=== PATIENT | female | born 1975 | race African-American/Black ===

== ENCOUNTER → 2017-12-04 | Outpatient (CLI) | payer OTHER ==
[~2017-12-04] VITALS: Ht 170.2 cm; Wt 116.7 kg
[~2017-12-04] MED LIST: AMITRIPTYLINE H25 M2 PO; ASPIRIN81 M2 PO; BALANCE B-501 EACH PO; LOPRESSOR50 PO; MYFORTIC180 MG PO; NEURONTIN 300300 M1 PO; NORVASC5 MG PO; POTASSIUM PO; PROBIOTIC1 EAC1 PO; PROGRAF 1 MG1 MG PO; SERTRALINE HCL100 MG PO; TRAZODONE 150150 M1 PO; TRIAMCINOLONE A80 G2 TOP; TRILEPTAL150 MG PO; VITAMIN D1000 UNI1 PO; VOLTAREN GEL 1100 G1 TOP; ZANAFLEX4 MG PO; ZANTAC 150MG T150 MG PO; ZOLPIDEM TARTRA10 MG PO
--- NOTE | ~2017-12-04 | HPC ---
[facility] [address] [place] [address] PAIN MANAGEMENT CONSULTATION Name: BENERNESTINAGARRY MOHAMUD Room #: REG CORIJocelyne Hancock.#: [id number] Admission: 12/04/17 Attend Phys: Dickson Martins DO Discharge: Date of : 75 Report #: [id number] THIS REPORT FOR: //name// CC: Marly Martins DATE OF SERVICE: 12/04/2017 The patient is a very pleasant 42-year-old female seen in consultation at the request of Dr. Salinas for assistance with management of left upper extremity pain. The patient presents to pain clinic with significant hyperpathia, allodynia, swelling and decreased range of motion left forearm, wrist and hand. She describes rhythmic, periodic, burning, shooting, throbbing, sharp pain. She rates anywhere from 8-10 on a visual analog scale. She notes any light touch significantly exacerbates pain. The patient notes she had had a left trigger finger (ring finger), treated with injections about 3 years ago. Ultimately progressed about 6 months ago to have surgical release of the entrapped tendon. States she did well for a few months and then in September without specific antecedent trauma developed significant pain, radial aspect of the wrist has developed a little bit of somewhat ulnar drift to the wrist and inability to deviate hand towards the radial side with significant increased pain. She followed up with her hand surgeon, Dr. Ross. MRI was ordered. He referred her to Dr. Morton at [facility] for a second opinion. Dr. Coronel did feel that her symptoms far outweighed the MRI findings. Suggested she may benefit from surgery, but wanted to wait until after the current swelling was resolved. The patient notes symptoms have become significantly worse over the past several months. REVIEW OF SYSTEMS: Complete review of systems was attached to the chart, was gone over with the patient. She is single, seen in company of her fiance who is supportive. She smokes which she has for 20+ years. She smokes 2-3 cigars a day presently. Does not drink alcohol to excess. History of glucose intolerance, not on any medications for this. History of hypertension, treated with metoprolol and amlodipine. She had a kidney and pancreatic transplant in 2009. She does take Prograf. She fortunately has had resolution of her hyperglycemia. She uses Myfortic, trazodone for some chronic insomnia, alternating with Ambien. She had been prescribed sertraline for chronic anxiety and depression, though she discontinued this in July. It sounds like she was having intermittent prescriptions and difficulty making appointments with her psychologist. Remaining review of systems is noncontributory. [address] [address] PAIN MANAGEMENT CONSULTATION Name: ERNESTINA CONTREARS Room #: REG LEXIS Bustos#: [id number] Admission: 12/04/17 Attend Phys: Dickson Martins DO Discharge: Date of : 75 Report #: [id number] SURGICAL HISTORY: As noted, status post pancreas transplant in 2009 and the aforementioned left hand trigger finger surgery about 6 months ago. She works in customer service. She is not working presently. She has been off work for 2 months due to ongoing pain. Pain impact score is quite high, averaging 10/10 for general activity, mood, sleep and enjoyment of life. PHYSICAL EXAMINATION: Reveals a 5-foot 7-inch, 116-kilogram female, BMI is 40 kilograms per meter squared. Blood pressure is 127/72, pulse 87, respirations 16. Cranial nerves 2-12 are grossly intact. She does have a little lateral gaze nystagmus. Thyroid is modestly large. She does have some bulging in the left supraclavicular area. Biceps, triceps and deltoid strength is symmetric. She has significant hyperpathia, allodynia about the left forearm starting just distal to the elbow. She has swelling in that left hand. Hand grasp is dramatically limited. She is unable to oppose her thumb and ring or fifth finger. She has difficulty with pronation. She can supinate adequately. Lungs are clear to auscultation. Heart is regular rate and rhythm. Abdomen is modestly endomorphic. Gait is tandem. DIAGNOSTIC STUDIES: MRI of the hand from 09/16/2017 does note findings consistent with a tear involving the ulnar styloid and foveal portions of the triangular fibrocartilage. There is also finding suggestive of small focal defect or tear at the radial attachment of the triangular fibrocartilage with some fluid noted here. ASSESSMENT: Reflex sympathetic dystrophy, left upper extremity complex regional pain syndrome. RECOMMENDATIONS: We will start the patient on gabapentin, gradually titrating 900 mg a day. We will plan on moving forward with left stellate ganglion block, a series of 3 in short cycle (q. 2-3 days). We also briefly discussed future therapeutic options including spinal cord stimulator if we cannot mitigate current symptoms. Thank you for allowing me to participate in the patient's care. I will keep you abreast of her progress. <ELECTRONICALLY SIGNED> By: Dickson Martins DO 12/05/17 0704 [id number] 38 Dickson Martins DO /nt
[2017-12-04 09:26] VITALS: BP 127/72
== END ==
LOC: PAIN 06:47
DX: M79.632 Pain in left forearm (principal); M79.642 Pain in left hand; M25.532 Pain in left wrist; R20.8 Other disturbances of skin sensation

== ENCOUNTER → 2018-03-16 | Outpatient (CLI) | payer OTHER ==
[~2018-03-16] VITALS: Ht 170.2 cm; Wt 107.5 kg
--- NOTE | ~2018-03-16 | HPC ---
[facility] [address] [place] [address] PAIN MANAGEMENT CONSULTATION Name: ERNESTINA CONTRERAS Room #: REG LEXIS Bustos#: [id number] Admission: 03/16/18 Attend Phys: Dickson Martins DO Discharge: Date of : 75 Report #: [id number] THIS REPORT FOR: //name// CC: Marly Martins DATE OF SERVICE: 03/16/2018 PAIN CLINIC PROCEDURE HISTORY OF PRESENT ILLNESS: The patient is a very pleasant 42-year-old female being treated for RSD left upper extremity, CRPS, requiring complex medication management. Last seen in the pain clinic on 02/19/2018. We plan on moving forward with left stellate ganglion block at that time; however, the patient had been quite ill. She had a leukocytosis, nausea, vomiting. She had been at [facility] earlier in the month and had some swelling in the right hand secondary to infiltrated IV. We elected to postpone interventional therapy as she had some sedation and cognitive impairment (electrolyte imbalance?) at her last visit. We trialled with Trileptal 150 mg at bedtime, titrating 2 at night. The patient returns to pain clinic today noting that Trileptal as with the gabapentin afforded untoward sedation. She discontinued that medication. Fortunately, the right hand swelling has resolved. She still has ongoing neuropathic pain, left upper extremity with hyperpathia, allodynia, status post prior intervention (CRPS type 1). The patient wished to proceed with left stellate ganglion block as we had discussed at her last visit. ASSESSMENT: Symptomatic complex regional pain syndrome type 1 left upper extremity. PROCEDURE: Left stellate ganglion block. DESCRIPTION OF PROCEDURE: After written informed consent was obtained, the patient was taken to the fluoroscopy suite and placed in supine position. Skin overlying the neck was cleansed with ChloraPrep. Skin wheal with Xylocaine was raised. A 22-gauge styletted stellate ganglion needle was placed to contact the lateral anterior aspect of the C6 vertebral body. AP and lateral projections showed good needle placement. Negative aspiration was accomplished, 1 mL of Omnipaque was injected, which showed spread within the sympathetic gutter. This was followed with 4 mL of 0.5% preservative-free bupivacaine plus 4 mL of 1.5% preservative-free Xylocaine with 1:200,000 epinephrine +4 mg of Decadron. Needle was removed. The area was cleansed, Band-Aids applied. The patient [address] [address] PAIN MANAGEMENT CONSULTATION Name: ERNESTINA CONTRERAS Room #: REG CLI Akash#: [id number] Admission: 03/16/18 Attend Phys: Dickson Martins DO Discharge: Date of : 75 Report #: [id number] monitored for an appropriate period of time, discharged in good and stable condition. <ELECTRONICALLY SIGNED> By: Dickson Martins DO 03/19/18 0805 1514 49 Dickson Martins DO /nick
[2018-03-16 13:50] VITALS: BP 151/87
== END | disposition home or self-care (01) ==
LOC: PAIN 03-06 14:31
DX: G90.512 Complex regional pain syndrome I of left upper limb (principal); Z79.899 Other long term (current) drug therapy; R20.8 Other disturbances of skin sensation; Z91.040 Latex allergy status; Z87.891 Personal history of nicotine dependence; Z79.82 Long term (current) use of aspirin

== ENCOUNTER → 2018-03-23 | Outpatient (CLI) | payer OTHER ==
[~2018-03-23] VITALS: Ht 170.2 cm; Wt 107.5 kg
--- NOTE | ~2018-03-23 | HPC ---
[facility] [place] [address] [address] PAIN MANAGEMENT CONSULTATION Name: ERNESTINA CONTRERAS Room #: REG LEXIS Bustos#: [id number] Admission: 03/23/18 Attend Phys: Dickson Martins DO Discharge: Date of : 75 Report #: [id number] THIS REPORT FOR: //name// CC: Marly Martins The patient is a 42-year-old female being treated for RSD left upper extremity. She was initially seen in consultation on 12/04/2017. We started gabapentin with really little efficacy. We talked about a spinal cord stimulator trial versus a series of stellate ganglion blocks. She ultimately progressed to have an initial stellate ganglion block on 03/16/2018. She returns to pain clinic today. I am pleased to note dramatic improvement of baseline pain. While she still scores the pain is 5 on a VAS, the area of hyperpathia and allodynia have significantly diminished. She still has an area about the proximal radial aspect of the forearm that is hyperpathic and allodynic. She still has some edema in the left upper extremity, but she feels overall significant improvement. Vital signs show modest hypertension 159/85, pulse 84, respirations are 18. She is alert and oriented to person, place, and time, judged to be a reasonable historian. Again, notes 50% improvement following the injection. Cervical range of motion is good. No sequelae from the procedure. ASSESSMENT: Complex regional pain syndrome, right upper extremity (type 1). The patient has been intolerant of most oral agents, though she is able to take amitriptyline at bedtime and oxcarbazepine at bedtime. She has chosen to eschew opiate analgesics and gabapentin caused untoward sedation. RECOMMENDATIONS: We will repeat left stellate ganglion block this day will make a follow up appointment to see the patient in 1 week; however, given the good efficacy from a single injection, I am hopeful we will not have to progress to a third stellate ganglion injection. <ELECTRONICALLY SIGNED> By: Dickson Martins DO 03/25/18 0725 1352 193 Dickson Martins DO /nt
[2018-03-23 13:12] VITALS: BP 159/85
== END ==
LOC: PAIN 06:43
DX: G90.50 Complex regional pain syndrome I, unspecified (principal)

== ENCOUNTER → 2018-04-10 | Outpatient (CLI) | payer OTHER ==
[~2018-04-10] VITALS: Ht 170.2 cm; Wt 109.8 kg
--- NOTE | ~2018-04-10 | HPC ---
[facility] [place] [address] [address] [address] PAIN MANAGEMENT CONSULTATION Name: ERNESTINA CONTRERAS Room #: REG LEXIS Bustos#: [id number] Admission: 04/10/18 Attend Phys: Dickson Martins DO Discharge: Date of : 75 Report #: [id number] THIS REPORT FOR: //name// CC: Marly Martins The patient is a very pleasant 42-year-old female being treated for left upper extremity complex regional pain syndrome type 1 (RSD) neuropathic pain. She has had one stellate ganglion block with significant improvement of baseline pain, but still has ongoing pain. She rates it as an 8 on a VAS. Pain is burning, shooting, throbbing and sharp. It is in the radial aspect distal forearm. She has limited range of motion to flexion, extension and radial and ulnar deviation, approximately 60% of the contralateral right hand range of motion. Does have hyperpathia, allodynia about the point aspect of left distal wrist where she had had a shunt placement attempted. ASSESSMENT: Neuropathic pain, left upper extremity. RECOMMENDATIONS: The patient presents to the pain clinic today for stellate ganglion block #2. Block #1 on 03/16/2018 had afforded good incremental relief. She has been loathe to take opiate analgesics. Calcium channel membrane stabilizing agents caused cognitive impairment. PROCEDURE: Left stellate ganglion block under fluoroscopy. PROCEDURE NOTE: After written informed consent was obtained, the patient placed in the supine position in the fluoroscopy suite. The skin overlying the neck was cleansed with ChloraPrep. Skin wheal with Xylocaine was raised. A 22-gauge stellate ganglion needle was placed to contact the anterior aspect of the left side of the C6 vertebral body at [place] tubercle. Negative aspiration was accomplished. 1 mL of Omnipaque was injected, which showed spread within the sympathetic gutter. This was followed with 4 mg of Decadron, 4 mL of 0.5% preservative-free bupivacaine and 1.5% preservative-free Xylocaine with 1:200,000 epinephrine. Needle was removed, the area was cleansed and Band-Aid was applied. The patient monitored for an appropriate period of time. Discharged in good and stable condition. Follow up with Dr. Dashawn Melton in 3-4 weeks. <ELECTRONICALLY SIGNED> By: Dickson Martins DO 04/12/18 1135 1145 [id number] Dickson Martins DO /nt
[2018-04-10 10:46] VITALS: BP 163/94
== END | disposition home or self-care (01) ==
LOC: PAIN 03-26 11:09
DX: G90.512 Complex regional pain syndrome I of left upper limb (principal)

== ENCOUNTER → 2018-04-27 | Outpatient (CLI) | payer OTHER ==
[~2018-04-27] VITALS: Ht 170.2 cm; Wt 110.7 kg
--- NOTE | ~2018-04-27 | HPC ---
[facility] [place] [address] PAIN MANAGEMENT CONSULTATION Name: ERNESTINA CONTRERAS ONEIDA Room #: REG CORIJocelyne Hancock.#: [id number] Admission: 04/27/18 Attend Phys: Dashawn Melton MD Discharge: Date of : 75 Report #: [id number] THIS REPORT FOR: //name// CC: Marly Melton DATE OF SERVICE: 04/27/2018 Followup visit for left arm pain. The patient returns to pain clinic today after 2 stellate ganglion blocks. Her pain is no better. She had some temporary relief after the first stellate ganglion block provided by Dr. Martins. She scores her pain today is an 8 exactly what she presented with before beginning initial injection therapy. She holds her hand in a [id number] position. She does not use it. She lays it on a pillow. She has allodynia on the left wrist, but she does not have excessive allodynia through the rest the arm. She has limited range of motion, but mostly, I believe this is due to disuse atrophy. She is very kinesophobic and is afraid of moving her arm because of the pain. MEDICATIONS: Reviewed and reconciled. She is not on stronger pain medication by her choice. She has limited use of nonsteroidal anti-inflammatory drugs because of her transplanted kidney. She is taking amitriptyline 25 mg at bedtime, trazodone 150 mg at bedtime, tizanidine 4 mg t.i.d., zolpidem for sleep, aspirin as well as metoprolol, ranitidine, amlodipine, Prograf, Myfortic and calcium with vitamin D. PHYSICAL EXAMINATION: GENERAL: She is a gentle 42-year-old. VITAL SIGNS: Blood pressure 138/70, heart rate 85, respirations 16. BMI 38.2. EXTREMITIES: Examination of the left wrist reveals limited range of motion of the fingers and the wrist is limited in pronation. There is localized tenderness along the radial aspect of the wrist just below the carpal radial junction. X-rays reveal a tear of the ulnar styloid and foveal triangular fibrocartilage. RECOMMENDATIONS: I think she really needs occupational therapy aggressively at this point. If she does not continue to use the arm, I believe that she will continue to get worse and I expressed this in clear terms to her. Because of her transplant kidney and her wish to avoid sedating medications, we are somewhat limited in medications that we can provide. I have suggested that we try some topical medications and ordered a ketamine cream, which has been [address] [address] PAIN MANAGEMENT CONSULTATION Name: ERNESTINA CONTRERAS ONEIDA Room #: REG [facility] Venu.Andrews.#: [id number] Admission: 04/27/18 Attend Phys: Dashawn Melton MD Discharge: Date of : 75 Report #: [id number] helpful in some of our patients. I was disappointed to hear that it is not covered by insurance and she cannot afford it. I have suggested Aspercreme along with her physical therapy. IMPRESSION: 1. Chronic pain of the left wrist with disuse atrophy and weakness, some allodynia suggesting sympathetic component. 2. Failure of stellate ganglion erwin therapy. PLAN: Occupational therapy as described provided at [facility] closer to her home. I have asked for hand evaluation and treatment modalities p.r.n. 2 visits per week for 4 weeks and we will reassess. By: [id number] Dashawn Melton MD /nt
[2018-04-27 12:49] VITALS: BP 138/70
== END ==
LOC: PAIN 06:25
DX: M25.532 Pain in left wrist (principal); G89.29 Other chronic pain; R53.1 Weakness; M79.602 Pain in left arm

== ENCOUNTER → 2018-06-25 | Outpatient (CLI) | payer OTHER ==
[~2018-06-25] VITALS: Ht 170.2 cm; Wt 114.0 kg
--- NOTE | ~2018-06-25 | HPC ---
[facility] [address] [place] [address] PAIN MANAGEMENT CONSULTATION Name: ERNESTINA CONTRERAS ONEIDA Room #: REG LEXIS Santi.#: [id number] Admission: 06/25/18 Attend Phys: Dashawn Melton MD Discharge: Date of : 75 Report #: [id number] THIS REPORT FOR: //name// CC: Dashawn Neville DATE OF SERVICE: 06/25/2018 Followup visit for left wrist pain. The patient returns to pain clinic today in followup. While she complains of pain through her neck and her entire arm, the vast majority of her pain is in her wrist along the radial aspect. She has a touch me not tenderness in that area and pain with all movements. She has had no local treatments there. I referred her to occupational therapy, but she would not go. She continues to hold her arm in a touch me not position. I believe this is contributing to the pain that is in her shoulder and neck. PHYSICAL EXAMINATION: She is a soft spoken, 42-year-old. Her blood pressure is 150/86, heart rate 71, respirations 16. She has allodynia and light touch discomfort along the radial aspect of the wrist. She has pain with all movement, flexion, extension and lateral movements of the wrist. There is no redness, but there may be some swelling. IMPRESSION: I believe this may be de Quervain's tenosynovitis. She has now been complaining of this for many months. RECOMMENDATIONS: I have recommended a local injection with bupivacaine and triamcinolone along the swollen tendon sheath and inflamed tendon. Potential benefits and risks have been discussed. She would like to proceed. IMPRESSION: De Quervain's tenosynovitis. PROCEDURE: Injection of de Quervain's. Skin was prepped with ChloraPrep. Skin was anesthetized with a 30-gauge needle and 1% lidocaine. I then used a 27-gauge needle to inject along the tendon sheath gently and easily without restriction. A total of 4 mL of 0.5% bupivacaine mixed with 40 mg of triamcinolone. Gentle massage was applied afterwards and she tolerated this touching that she would not have prior to the procedure. There was a marked reduction in pain at the time of discharge. [address] [address] PAIN MANAGEMENT CONSULTATION Name: RANGEL CONTRERASLEN [facility] Room #: REG CLJocelyne Bustos#: [id number] Admission: 06/25/18 Attend Phys: Dashawn Melton MD Discharge: Date of : 75 Report #: [id number] Followup visit planned in 1 month. Further treatments will depend upon duration of response. <ELECTRONICALLY SIGNED> By: Dashawn Melton MD 07/17/18 1312 1704 0026 Dashawn Melton MD /nt
[2018-06-25 13:43] VITALS: BP 150/86
== END | disposition home or self-care (01) ==
LOC: PAIN 05-28 07:13
DX: M65.4 Radial styloid tenosynovitis [de Quervain] (principal); M25.532 Pain in left wrist; F17.210 Nicotine dependence, cigarettes, uncomplicated; Z98.890 Other specified postprocedural states; Z91.040 Latex allergy status; Z79.899 Other long term (current) drug therapy